=== PATIENT | male | born 1995 | race Caucasian/White ===

== ENCOUNTER 2017-02-17 11:39 | Emergency (ER) | payer MEDICAID ==
[2017-02-17 11:42] VITALS: BP 110/65; TEMP 97.9
[2017-02-17 12:26] LABS: COLLECTION METHOD CLEAN CATCH
[2017-02-17 12:35] LABS: MUCOUS Present /lpf; PH 5 (5-8); SQUAMOUS EPITHELIAL None Seen /hpf; URINE APPEARANCE Hazy; URINE BACTERIA None Seen /hpf; URINE BILIRUBIN Negative (NEGATIVE); URINE BLOOD Negative (NEGATIVE); URINE COLOR Yellow; URINE GLUCOSE Negative (NEGATIVE); URINE KETONE Negative (NEGATIVE); URINE LEUKOCYTE ESTERASE Negative (NEGATIVE); URINE NITRATE Negative (NEGATIVE); URINE PROTEIN(semi-quant) Negative (NEGATIVE); URINE RBC 0-2 /hpf; URINE UROBILINOGEN Negative (NEGATIVE)
[2017-02-17 13:20] VITALS: PULSE 71
== END 2017-02-17 13:18 | disposition home or self-care (01) ==
LOC: COL.ER 11:39
PROVIDERS: Physician Assistant
DX: M54.6 Pain in thoracic spine (principal); Z80.0 Family history of malignant neoplasm of digestive organs